=== PATIENT | female | born 1990 | race Caucasian/White ===

== ENCOUNTER 2023-08-23 05:31 | Inpatient (IN) | payer BC ==
[2023-08-21 15:24] LABS: Hematocrit 33.4 % (34.9-44.5); Hemoglobin 10.5 g/dL (12.0-15.5); Platelet Count 323 10x3/uL (150-450)
[2023-08-21 15:43] LABS: Hep B Surf Ag Non-Reactive S/CO (NonReactive)
[2023-08-21 15:44] LABS: Syphilis Antibody Nonreactive (Nonreactive); Syphilis Antibody Index 0.06 S/CO (<1.00 Non-Reactive)
[2023-08-21 15:56] LABS: SARS-CoV-2 NAA Rapid Test Not Detected (NotDetected)
[2023-08-23] MEDS ORDERED: Ondansetron PF 4 MG/2 ML Vial IVP PRN ×3 (05:58→08:45)
[2023-08-23] MEDS ORDERED: Carboprost 250 MCG/ML AMP IM PRN (05:58)
[2023-08-23] MEDS ORDERED: Famotidine/PF 20 mg/2ml Vial SLOW IVP PRN (05:58)
[2023-08-23] MEDS ORDERED: hydrALAZINE 20 MG/ML VIAL SLOW IVP PRN ×2 (05:58→12:25)
[2023-08-23] MEDS ORDERED: Methylergonovine 0.2 MG/ML VIAL IM PRN (05:58)
[2023-08-23] MEDS ORDERED: Misoprostol 200 MCG TAB PR PRN ×2 (05:58→12:25)
[2023-08-23] MEDS ORDERED: Diphenoxylate HCl/Atropine Tablet PO PRN ×2 (05:58)
[2023-08-23] MEDS ORDERED: CEFAZOLIN 2 GM in Sodium Chloride 0.9% 100 ML IVPB SCH (05:58)
[2023-08-23] MEDS ORDERED: Bicitra 30 ML UDCUP PO PRN (05:58)
[2023-08-23] MEDS ORDERED: Promethazine HCl 25 MG/ML VIAL IM PRN ×2 (05:58→08:45)
[2023-08-23 05:59] VITALS: BMI 42.8
[2023-08-23] MEDS ORDERED: Oxytocin 30 units/NS 500 ML 500 ML IV SCH ×2 (06:00→12:25)
[2023-08-23] MEDS ORDERED: Lactated Ringer's 1,000 ML IV SCH (06:00)
[2023-08-23] MEDS ORDERED: Morphine PF 10 MG/10 ML VIAL ONE (07:29)
[2023-08-23] MEDS ORDERED: Dexmedetomidine 200 MCG/2 ML VIAL ONE (07:29)
[2023-08-23] MEDS ORDERED: Sodium Bicarbonate 2.5 MEQ/5 ML VIAL ONE (07:35)
[2023-08-23] MEDS ORDERED: Phenylephrine 40 MG/NS 250 ML 250 ML ONE (07:35)
[2023-08-23] MEDS ORDERED: Ondansetron PF 4 MG/2 ML Vial ONE (07:50)
[2023-08-23] MEDS ORDERED: Dexamethasone 4 mg/ml Vial ONE (07:50)
[2023-08-23] MEDS ORDERED: PHENYLEPHRINE-NS 100 MCG/ML 10 ML SYRINGE ONE (07:52)
[2023-08-23] MEDS ORDERED: Oxytocin 10 UNITS/ML VIAL ONE ×2 (08:17→08:37)
[2023-08-23] MEDS ORDERED: Ketorolac Tromethamine 30 MG/ML VIAL ONE (08:17)
[2023-08-23] MEDS ORDERED: Promethazine HCl 25 MG SUPP PR PRN (08:45)
[2023-08-23] MEDS ORDERED: Moisturizing Cream (Eucerin) 113 GM JAR TOP PRN (08:45)
[2023-08-23] MEDS ORDERED: Meperidine HCl/PF 25 MG/ML VIAL SLOW IVP PRN (08:45)
[2023-08-23] MEDS ORDERED: Naloxone HCl 0.4 mg/ml Vial IV PRN (08:45)
[2023-08-23] MEDS ORDERED: fentaNYL 50 mcg/mL 1 mL Vial SLOW IVP PRN (08:45)
[2023-08-23] MEDS ORDERED: Communication Order-Pharmacy FS SCH (08:45)
[2023-08-23] MEDS ORDERED: diphenhydrAMINE 50 MG/ML VIAL IVP PRN (08:45)
[2023-08-23] MEDS ORDERED: Naloxone HCl 0.4 mg/ml Vial IVP PRN ×2 (08:45)
[2023-08-23] MEDS ORDERED: Bisacodyl 10 MG SUPP PR PRN (12:25)
[2023-08-23] MEDS ORDERED: Simethicone Chewable 80 MG TAB PO PRN (12:25)
[2023-08-23] MEDS ORDERED: Boostrix 0.5 ML (Tdap) VIAL (>/=7 yrs of age) IM ONE (12:25)
[2023-08-23] MEDS ORDERED: Lanolin Ointment 7 GM TUBE TOP PRN (12:25)
[2023-08-23] MEDS ORDERED: Acetaminophen 325 MG TAB PO PRN (12:25)
[2023-08-23] MEDS: Ketorolac Tromethamine 30 MG/ML VIAL IVP SCH ×2 (15:33→21:04)
[2023-08-23] MEDS: Ferrous Sulfate 325 MG TAB PO SCH (21:11)
[2023-08-23] MEDS: Docusate 100 MG CAP PO SCH (22:16)
[2023-08-24] MEDS: Ketorolac Tromethamine 30 MG/ML VIAL IVP SCH ×2 (02:58→09:06)
[2023-08-24 03:20] LABS: Hematocrit 26.9 % (34.9-44.5); Hemoglobin 8.5 g/dL (12.0-15.5); Mean Corpuscular HGB CONC 31.6 g/dL (32.0-36.0); Mean Corpuscular Hemoglobin 23.5 pg (27.0-33.0); Mean Corpuscular Volume 74.5 fl (81.6-98.3); Mean Platelet Volume 10.1 fl (7.4-10.4); Platelet Count 249 10x3/uL (150-450); RBC Distribution Width 14.3 % (11.5-14.5); Red Blood Cell (RBC) Count 3.61 10x6/uL (3.90-5.03); White Blood Cell (WBC) Count 11.5 10x3/uL (3.5-10.5)
[2023-08-24] MEDS: Ferrous Sulfate 325 MG TAB PO SCH ×2 (09:05→21:29)
[2023-08-24] MEDS: Docusate 100 MG CAP PO SCH ×2 (09:06→21:29)
[2023-08-24] MEDS: HYDROcodone/Acetaminophen 5/325 mg Tablet PO PRN ×3 (09:06→17:27)
[2023-08-24] MEDS: Prenatal Vitamin 1 TAB PO SCH (09:06)
[2023-08-24] MEDS: Ibuprofen 800 MG TAB PO SCH ×2 (13:55→21:29)
[2023-08-25] MEDS: HYDROcodone/Acetaminophen 5/325 mg Tablet PO PRN ×3 (05:38→14:47)
[2023-08-25] MEDS: Ibuprofen 800 MG TAB PO SCH ×2 (06:08→14:46)
[2023-08-25 07:55] VITALS: BP 117/57; TEMP 98.4
[2023-08-25] MEDS: Docusate 100 MG CAP PO SCH (08:22)
[2023-08-25] MEDS: Ferrous Sulfate 325 MG TAB PO SCH (08:22)
[2023-08-25] MEDS: Prenatal Vitamin 1 TAB PO SCH (08:22)
== END 2023-08-25 15:50 | disposition home or self-care (01) | DRG 788 ==
LOC: CSHLD 05:31 → CSHPP 11:40
PROVIDERS: ADMIT Obstetrics & Gynecology; ATTEND Obstetrics & Gynecology
PROC: 10D00Z1 Extraction of Products of Conception, Low, Open Approach (ICD-10-PCS; principal; 2023-08-23)
PROC: 3E0P05Z Introduction of Adhesion Barrier into Female Reproductive, Open Approach (ICD-10-PCS; 2023-08-23)
DX: O34.211 Maternal care for low transverse scar from previous cesarean delivery (principal); Z3A.39 39 weeks gestation of pregnancy; Z37.0 Single live birth; Z88.8 Allergy status to other drugs, medicaments and biological substances; O77.0 Labor and delivery complicated by meconium in amniotic fluid; D64.9 Anemia, unspecified; O99.02 Anemia complicating childbirth; Z11.52 Encounter for screening for COVID-19
CPT/HCPCS: 36415; 51702; 85014; 85018; 85027; 85049; 86780; 86850; 86900; 86901; 87340; J1100; J1885; J2274; J2405; J2590; J3490; J7120; S0028; U0002